=== PATIENT | female | born 1970 | race African-American/Black ===

== ENCOUNTER 2025-07-12 02:10 | Emergency (ER) | payer OTHER ==
[2025-07-12] MEDS ORDERED: Ondansetron PF 4 MG/2 ML Vial ONE ×2 (02:53→04:17)
[2025-07-12 03:11] LABS: Leukocyte Trace (Negative); Specific Gravity, Urine 1.020 (1.005-1.030)
[2025-07-12 03:12] LABS: Bacteria/HPF None Seen HPF (None Seen); CAUTI Indications for Culture Dysuria,urgency,freq; Glucose, Urine (Dipstick) Negative (Negative); Protein, Urine (Dipstick) Negative (Neg-Trace); WBC/HPF None Seen HPF (0-3)
[2025-07-12 03:13] LABS: Urine Culture Reflex No No
[2025-07-12 03:17] LABS: Hematocrit 46.4 % (36.0-47.0); Hemoglobin 14.5 g/dL (12.0-16.0); MDiff Complete? YES; Mean Corpuscular Hemoglobin 29.5 pg (27.0-31.0); Mean Corpuscular Volume 94.0 fl (78.0-98.0); Platelet Adequacy Comment Appears Adequate; Platelet Count 272 10x3/uL (130-400); Red Blood Cell (RBC) Count 4.94 mill/uL (4.20-5.40); White Blood Cell (WBC) Count 6.8 10x3/uL (4.8-10.8)
[2025-07-12 03:26] LABS: ALT (SGPT) 17 U/L (Less than 34); AST (SGOT) 18 U/L (11-34); Albumin 4.5 g/dL (3.1-4.5); Alkaline Phosphatase 76 U/L (40-110); Anion Gap 19 mmol/L (10-20); BUN (Urea Nitrogen) 12 mg/dL (9.8-20.1); Bilirubin, Total 1.0 mg/dL (0.3-1.2); Calc. Creatinine Clearance 0 mL/min (70-130); Calcium 9.1 mg/dL (7.8-10.44); Carbon Dioxide 18 mmol/L (22-29); Chloride 107 mmol/L (98-107); Globulin 3.1 g/dL (2.4-3.5); Glucose 85 mg/dL (70-105); Lipase 12 U/L (8-78); Potassium 3.8 mmol/L (3.5-5.1); Sodium 140 mmol/L (136-145)
[2025-07-12] MEDS ORDERED: Ketorolac Tromethamine 30 MG (1 mL) VIAL ONE (03:38)
[2025-07-12] MEDS ORDERED: Iopamidol 370 76% 100 ML VIAL ONE (12:54)
== END 2025-07-12 05:05 | disposition home or self-care (01) ==
LOC: BURERS 02:10
DX: K52.9 Noninfective gastroenteritis and colitis, unspecified (principal); I10 Essential (primary) hypertension
CPT/HCPCS: 74177; 80053; 81001; 83690; 85025; 96374; 96375; 96376; J1885; J2270; J2405; Q9967